=== PATIENT | male | born 1985 | race Hispanic/Latino ===

== ENCOUNTER 2017-06-10 18:34 | Inpatient (IN) | payer MEDICAID, OTHER ==
--- NOTE | 2017-06-10 19:00 | C.PDOC ---
History Of Present Illness 31 year old male presents to the ED requesting heroin detox. Patient states his last use was today at 17:00. Patient denies any SI/HI, hallucinations, or other physical complaints at this time. Time Seen by Provider: 06/10/17 18:59 Chief Complaint (Nursing): Substance Abuse History Per: Patient History/Exam Limitations: no limitations Onset/Duration Of Symptoms: Hrs Current Symptoms Are (Timing): Gone Suicide/Self Injury Attempted (Context): None Modifying Factor(s): Other (Heroin) Severity: None Associated Symptoms: denies: Depression, Suicidal Thoughts, Suicidal Plan Involuntary Hold By: None Recent travel outside of the [place]: No Additional History Per: Patient Past Medical History Reviewed: Historical Data, Nursing Documentation, Vital Signs - Medical History PMH: No Chronic Diseases Surgical History: No Surg Hx Family History: States: Unknown Family Hx - Social History Hx Alcohol Use: No Hx Substance Use: Yes - Immunization History Hx Tetanus Toxoid Vaccination: No Hx Influenza Vaccination: No Hx Pneumococcal Vaccination: No Review Of Systems Constitutional: Negative for: Fever, Chills Cardiovascular: Negative for: Chest Pain Respiratory: Negative for: Cough, Shortness of Breath Gastrointestinal: Negative for: Nausea, Vomiting, Abdominal Pain Skin: Negative for: Rash Neurological: Negative for: Weakness, Numbness Psych: Negative for: Suicidal ideation Physical Exam - Physical Exam Appears: Non-toxic, No Acute Distress Skin: Warm, Dry Head: Normacephalic Eye(s): bilateral: Normal Inspection Nose: No Discharge Oral Mucosa: Moist Neck: Trachea Midline, Supple Chest: Symmetrical Cardiovascular: Rhythm Regular Respiratory: No Rales, No Rhonchi, No Wheezing Gastrointestinal/Abdominal: Soft, No Tenderness, No Distention, No Rebound Male Genital: Normal Inspection Extremity: Normal ROM, No Pedal Edema, No Calf Tenderness, No Swelling Extremity: Bilateral: Atraumatic, Normal Color And Temperature Pulses: Left Dorsalis Pedis: Normal, Right Dorsalis Pedis: Normal Neurological/Psych: Oriented x3, Normal Speech, Normal Cognition Gait: Steady ED Course And Treatment - Laboratory Results Result Diagrams: 06/10/17 19:31 06/10/17 19:31 Disposition Discussed With : Lionel Oliver Comment: accepted the pt on his service and took over the care at 8:38 PM Doctor Will See Patient In The: Hospital Counseled Patient/Family Regarding: Studies Performed, Diagnosis - Disposition Disposition: HOSPITALIZED Disposition Time: 19:00 Condition: FAIR Forms: [facility] (Tanzanian) - POA Present On Arrival: None - Clinical Impression Clinical Impression: Drug abuse, Drug dependence - Scribe Statement The provider has reviewed the documentation as recorded by the Scribe Peter Mittal All medical record entries made by the Scribe were at my direction and personally dictated by me. I have reviewed the chart and agree that the record accurately reflects my personal performance of the history, physical exam, medical decision making, and the department course for this patient. I have also personally directed, reviewed, and agree with the discharge instructions and disposition. Decision To Admit - Pt Status Changed To: Hospital Disposition Of: Inpatient - Admit Certification Admit to Inpatient:: After my assessment, the patient will require hospitalization for at least two midnights. This is because of the severity of symptoms shown, intensity of services needed, and/or the medical risk in this patient being treated as an outpatient. - InPatient: Physician Admission Certification: I certify that this patient requires 2 or more midnights of care for the following reason:: After my assessment, the patient will require hospitalization for at least two midnights. This is because of the severity of symptoms shown, intensity of services needed, and/or the medical risk in this patient being treated as an outpatient. - . Bed Request Type: Detox Admitting Physician: Lionel Oliver Patient Diagnosis: Drug abuse, Drug dependence
[2017-06-10 19:34] LABS: BASO # 0.1 K/uL (0.0-0.2); BASO % 0.6 % (0.0-2.0); EOS # 0.1 K/uL (0.0-0.7); EOS % 0.7 % (0.0-4.0); HEMATOCRIT 37.2 % (35.0-51.0); LYMPH # 2.4 K/uL (1.0-4.3); MEAN CELL VOLUME 89.2 fL (80.0-94.0); MEAN CORPUSCULAR HEMOGLOBIN 30.6 pg (27.0-31.0); MEAN CORPUSCULAR HGB CONC 34.3 g/dL (33.0-37.0); MONO # 1.6 K/uL (0.0-0.8); MONO % 11.4 % (0.0-10.0); RED CELL DISTRIBUTION WIDTH 12.8 % (11.5-14.5); WHITE BLOOD COUNT 14.1 K/uL (4.8-10.8)
[2017-06-10 19:46] LABS: ALB/GLOB RATIO 1.3 (1.0-2.1); ALCOHOL SERUM < 10 mg/dl (0-10); ALKALINE PHOSPHATASE 82 U/L (38-126); ALT/SGPT 36 U/L (21-72); AST/SGOT 17 U/L (17-59); BILIRUBIN,TOTAL 0.5 mg/dL (0.2-1.3); BLOOD UREA NITROGEN 17 mg/dL (9-20); CALCIUM 8.9 mg/dl (8.6-10.4); CARBON DIOXIDE 29 mmol/L (22-30); CHLORIDE 102 mmol/L (98-107); GFR AFRICAN-AMERICAN > 60; GLUCOSE,RANDOM 100 mg/dL (75-110); SODIUM 139 mmol/L (132-148); TOTAL PROTEIN 7.4 g/dL (6.3-8.3)
[2017-06-10 19:49] LABS: RBC URINE 14 /hpf (0-3); URINE BACTERIA RARE (<OCC); URINE BILIRUBIN NEGATIVE (NEGATIVE); URINE BLOOD 1+ (NEGATIVE); URINE COLOR Yellow (YELLOW); URINE GLUCOSE (UA) NORMAL (Normal); URINE KETONE NEGATIVE (NEGATIVE); URINE LEUKOCYTE ESTERASE NEG Leu/uL (Negative); URINE PROTEIN NEGATIVE (NEGATIVE); WBC URINE 1 /hpf (0-5)
[2017-06-10] MEDS: traZODone 25 mg Tab PO PRN (22:28)
--- NOTE | 2017-06-10 22:31 | PCM.BM ---
<Cynthia Amador - Last Filed: 06/10/17 22:29> Treatment Plan Problems - Problems identified on initial assessmt Potential for Opiate Withdrawal Date Initiated: 06/10/17 Time Initiated: 22:30 Assessment reference: NA Treatment assets and liabiliti Patient Assests: adapts well, cooperative, self-reliant, ADL independent, negotiates basic needs Patient Liabilities: substance abuse - Milieu Protocol Maintain good personal hygiene: daily Encourage regular showers, daily Remind patient to perform daily oral care, daily Assist patient to perform ADL's Conduct patient checks and document Observation sheet: Q15 minutes Maintain personal safety: every shift Educate patient to report safety concerns to staff, every shift Monitor environment for contraband/sharps Medication safety: Monitor for expected outcome, potential side effects: every shift, Assess barriers to learning: every shift, Assess readiness for medication education: every shift <Stefany Galindo - Last Filed: 06/11/17 11:52> - Diagnosis (1) Opioid use disorder, severe, dependence Status: Acute Interventions: 06/11/17 11:53 * Assess 7x/week regarding severity of withdrawal * Educate regarding risks, benefits, side effects and alternatives of medications * Use Motivational Interviewing for abstinence * Use CBT for relapse prevention * Medication management for withdrawal symptoms * Encourage medication assisted treatment * <Saba Merchant - Last Filed: 06/12/17 11:31> Family Contact Family involvement: Famliy/SO not involved Family contact: Patient declines to allow family contact at present - Goals for Treatment Patient goals for treatment: Complete detox and consider Suboxone maintenance. Discharge/Continuing Care - Education Needs Education Needs: Patient Medication, Patient Diagnosis/Disease Process, Patient Coping Skills, Patient Anger Management skills, Patient Placement options, Patient Community resources - Discharge Discharge Criteria: Normal sleep pattern, No longer exhibiting s/s of withdrawal , Reduction of target symptoms Discharge to:: Home, With Family - Treatment Team Participation Patient/Family/SO Statement: 06/12/17 11:31 "I'll consider Suboxone. There's a place by my house." Discussed with Family/SO: No Was Patient/Family/SO present at Treatment Team Meeting: Yes
[2017-06-11] MEDS ORDERED: Aluminum Hydroxide/Magnesium Hydroxide Susp (30 mL) PO PRN (10:13)
--- NOTE | 2017-06-11 11:55 | PCM.PSYCH ---
Initial Psychiatric Evaluation - Initial Psychiatric Evaluation Type of Admission: Voluntary Legal Status: Capacity Chief Complaint (in patient's own words): "Heroin" History of Present Illness and Precipitating Events: Patient is seen, chart reviewed and case discussed This is a 31-year-old white male, single with no child, unemployed, lives with his family. Patient uses 10-25 bags of IV heroin for about a year. However, he started 7 years ago and had and 9 months sobriety at [place]. He had used painkillers in the beginning but not anymore. He admits to using cocaine "rarely" and smokes 1 pack per day cigarettes. He denies all other drug use and alcohol. His been to detox 4 times and rehabilitation twice at [place]. He reports suffering from anxiety but currently on no medications. Past psych history: No admissions or suicide attempts but he was prescribed low- dose Seroquel and Xanax in the past for anxiety. Medical history: Denies Family psych history: Denies Current Medications: Active Medications Generic Name Dose Route Start Last Admin Trade Name Freq PRN Reason Stop Dose Admin Al Hydrox/Mg Hydrox/Simethicone 30 ml 06/11/17 10:13 Maalox 30 Ml PO TID PRN Indigestion / Heartburn Clonidine HCl 0.1 mg 06/11/17 10:13 Catapres PO Q8 PRN COWS Score More or Equal to 5 Hydroxyzine HCl 50 mg 06/11/17 10:17 Atarax PO Q6H PRN Anxiety Ibuprofen 600 mg 06/11/17 10:16 Motrin Tab PO Q6H PRN Pain, moderate (4-7) Loperamide HCl 2 mg 06/11/17 10:13 Imodium PO Q8 PRN Diarrhea Nicotine 1 patch 06/11/17 10:15 06/11/17 10:40 Nicoderm Cq TD 1 patch DAILY FRANCISCO J Administration Ondansetron HCl 4 mg 06/11/17 10:13 Zofran Tab PO Q8 PRN Nausea/Vomiting Trazodone HCl 50 mg 06/10/17 22:18 06/10/17 22:28 Desyrel PO 50 mg HS PRN Administration Insomnia Past Psychiatric History - Past Psychiatric History Previous Treatment History: None Pertinent Medical Hx (Current Medical&Sleep Prob, Allergies): Allergies Allergy/AdvReac Type Severity Reaction Status Date / Time No Known Allergies Allergy Unverified 06/10/17 18:41 No Known Home Med 06/10/17 Review of Systems - Neurological Neurological: UNREMARKABLE - Psychiatric Psychiatric: Abnormal Sleep Pattern, Anxiety, Difficulty Concentrating, Irritability. absent: Hallucinations, Homicidal Ideation, Paranoia, Suicidal Ideation Mental Status Examination - Personal Presentation Personal Presentation: Looks stated age - Affect Affect: Constricted - Motor Activity Motor Activity: Calm - Reliability in Providing Information Reliability in Providing Information: Good - Speech Speech: Organized - Mood Mood: Anxious - Formal Thought Process Formal Thought Process: No Impairment - Cognitive Functions Orientation: Person, Place, Situation, Time Sensorium: Alert Attention/Concentration: Attentive Estimate of Intelligence: Average Judgement: Intact, as evidence by: Insight regarding need for hospitalization Memory: Recent intact, as evidence by: Ability to recall events of the day, Remote intact, as evidenced by: Abilit to recall sig. life events - Risk Risk: Withdrawal, Diminished functioning - Strength & Assets Inventory Strength & Assets Inventory: Cooperative - Limitations Limitations: Other DSM 5 DX - DSM 5 DSM 5 Diagnosis: Opioid withdrawal Opioid use d/o - severe Tobacco use d/o - severe Anxiety d/o- unspecified - Recommended/Plan of Treatment Treatment Recommendations and Plan of Treatment: Methadone detox As needed medications Attend groups and activities Supportive therapy and psychoeducation SC for abstinence CBT for relapse prevention Encourage MAT Refer to rehab or IOP, and self-help groups Smoking cessation with SC Nicotine patch 34 min Projected ELOS: 5 days Prognosis: good with treatment Discharge Plan and Discharge Criteria: No wdw sxs Refer to rehab and MAT - Smoking Cessation Smoking Cessation Initiated: Yes
[2017-06-11] MEDS: traZODone 25 mg Tab PO PRN (21:01)
--- NOTE | 2017-06-12 14:17 | PCM.PYCHPN ---
Psychiatric Progress Note - Psychiatric Progress Note Patient seen today, length of contact: 18 min Patient Chief Complaint: "I was withdrawing last night" Problems Identified/Issues Discussed: The pt is seen, chart reviewed, case discussed with staff. Support given, CBT and VT used briefly No new symptoms reported, improving slowly and needs more time He is too anxious about withdrawing, one dose prn methadone added No SEs from medications, risks discussed. After care discussed Medication Change: Yes (detox changes daily) Medical Record Reviewed: Yes Mental Status Examination - Cognitive Function Orientation: Person, Place, Situation, Time Memory: Intact Attention: Poor Concentration: Poor Association: WNL Fund of Knowledge: WNL - Mood Mood: Anxious - Affect Affect: Constricted - Speech Speech: Appropriate - Formal Thought Process Formal Thought Process: No Impairment - Suicidal Ideation Suicidal Ideation: No - Homicidal Ideation Homicidal Ideation: No Goal/Treatment Plan - Goal/Treatment Plan Need for Continued Stay: Discharge may exacerbated symptoms, Severe functional impairment Progress Toward Problem(s) and Goals/Treatment Plan: Methadone detox adjusted Seroquel added and increased As needed medications Attend groups and activities Supportive therapy and psychoeducation [place] for abstinence CBT for relapse prevention Encourage MAT Refer to rehab or IOP, and self-help groups Smoking cessation with VT Nicotine patch Estimated Date of D/C: 06/15/17
[2017-06-12] MEDS ORDERED: Benzocaine 10% Oral Anesthetic (12 ml) MM PRN (18:21)
[2017-06-12] MEDS: Benzocaine 7.5% 9.4 G TUBE MM PRN (18:54)
[2017-06-12] MEDS: traZODone 25 mg Tab PO PRN (21:41)
--- NOTE | 2017-06-13 10:17 | PCM.PYCHPN ---
Psychiatric Progress Note - Psychiatric Progress Note Patient seen today, length of contact: 15 min Patient Chief Complaint: "I'm so-so" Problems Identified/Issues Discussed: This patient was seen, chart reviewed, and case discussed with staff. Patient reports improving sleep with medication use. He states he felt anxious last night but is unsure of why. He reports being anxious today regarding transportation home and with after care. He denies any feelings of depression or anxiety. He denies any auditory or visual hallucinations or any feelings of paranoia. He denies any suicidal or homicidal ideations. He continues to be social and freely leaves his room. Patient is compliant with medications and denies any side effects. Symptoms are improving but need more time to stabilize. After care discussed, he is considering outpatient treatment but prefers to "go home and go back to work." Support and psychoeducation given. Medication Change: Yes (Methadone taper ) Medical Record Reviewed: Yes Mental Status Examination - Cognitive Function Orientation: Person, Place, Situation, Time Memory: Intact Attention: WNL Concentration: WNL Association: WNL Fund of Knowledge: WNL - Mood Mood: Anxious - Affect Affect: Constricted - Speech Speech: Appropriate - Formal Thought Process Formal Thought Process: No Impairment - Suicidal Ideation Suicidal Ideation: No - Homicidal Ideation Homicidal Ideation: No Goal/Treatment Plan - Goal/Treatment Plan Need for Continued Stay: Discharge may exacerbated symptoms, Severe functional impairment Progress Toward Problem(s) and Goals/Treatment Plan: Methadone detox As needed medications Attend groups and activities Supportive therapy and psychoeducation [place] for abstinence CBT for relapse prevention Encourage MAT Refer to rehab or IOP, and self-help groups Smoking cessation with [place] Nicotine patch Estimated Date of D/C: 06/15/17
[2017-06-13 11:14] LABS: BASO % 0.3 % (0.0-2.0); EOS # 0.1 K/uL (0.0-0.7); EOS % 1.2 % (0.0-4.0); HEMATOCRIT 36.4 % (35.0-51.0); LYMPH # 2.7 K/uL (1.0-4.3); LYMPH % 34.7 % (20.0-40.0); MEAN CELL VOLUME 89.5 fL (80.0-94.0); MEAN CORPUSCULAR HGB CONC 34.7 g/dL (33.0-37.0); MEAN PLATELET VOLUME 8.2 fL (7.2-11.7); MONO # 0.4 K/uL (0.0-0.8); RED CELL DISTRIBUTION WIDTH 12.8 % (11.5-14.5); WHITE BLOOD COUNT 7.9 K/uL (4.8-10.8)
[2017-06-13] MEDS: Benzocaine 7.5% 9.4 G TUBE MM PRN (13:57)
[2017-06-13] MEDS: traZODone 25 mg Tab PO PRN (21:28)
--- NOTE | 2017-06-14 14:15 | PCM.PYCHPN ---
Psychiatric Progress Note - Psychiatric Progress Note Patient seen today, length of contact: 15 min Patient Chief Complaint: "I am better" Problems Identified/Issues Discussed: The pt is seen, chart reviewed, case discussed with staff. Support given, CBT and IN used briefly No new symptoms reported, improving slowly and needs more time No SEs from medications, risks discussed. After care discussed and he is still only interested in "meetings, maybe IOP" Medication Change: Yes (Methadone taper ) Medical Record Reviewed: Yes Mental Status Examination - Cognitive Function Orientation: Person, Place, Situation, Time Memory: Intact Attention: WNL Concentration: WNL Association: WNL Fund of Knowledge: WNL - Mood Mood: Anxious - Affect Affect: Constricted - Speech Speech: Appropriate - Formal Thought Process Formal Thought Process: No Impairment - Suicidal Ideation Suicidal Ideation: No - Homicidal Ideation Homicidal Ideation: No Goal/Treatment Plan - Goal/Treatment Plan Need for Continued Stay: Discharge may exacerbated symptoms, Severe functional impairment Progress Toward Problem(s) and Goals/Treatment Plan: Methadone detox adjusted Seroquel added and increased As needed medications Attend groups and activities Supportive therapy and psychoeducation [place] for abstinence CBT for relapse prevention Encourage MAT Refer to rehab or IOP, and self-help groups Smoking cessation with [place] Nicotine patch Estimated Date of D/C: 06/15/17
[2017-06-14] MEDS: traZODone 25 mg Tab PO PRN (21:24)
--- NOTE | 2017-06-15 08:45 | PCM.PYCHDC ---
Mental Status Examination - Mental Status Examination Orientation: Person, Place, Situation, Time Memory: Intact Mood: Anxious Affect: Broad Speech: Appropriate Attention: WNL Concentration: WNL Association: WNL Fund of Knowledge: WNL Formal Thought Process: No Impairment Suicidal Ideation: No Current Homicidal Ideation?: No Discharge Summary - Discharge Note Reason for Hospitalization: Heroin detox Consultations:: List each consultation separately and include: 1. Reason for request. 2. Findings. 3. Follow-up Summary of Hospital Course include:: 1. Description of specific treatment plan utilized for patients during their course of treatmen. 2. Summarize the time- course for resolution of acute symptoms and/or regressed behaviors. 3. Describe issues identified and worked on during hospitalization. 4. Describe medication utilized. 5. Describe medical problems identified and treated. 6. Reassessment of suicide risk Summary of Hospital Course: Patient is seen, chart reviewed and case discussed On admission: This is a 31-year-old white male, single with no child, unemployed, lives with his family. Patient uses 10-25 bags of IV heroin for about a year. However, he started 7 years ago and had and 9 months sobriety at [place]. He had used painkillers in the beginning but not anymore. He admits to using cocaine "rarely" and smokes 1 pack per day cigarettes. He denies all other drug use and alcohol. His been to detox 4 times and rehabilitation twice at [place]. He reports suffering from anxiety but currently on no medications. Past psych history: No admissions or suicide attempts but he was prescribed low- dose Seroquel and Xanax in the past for anxiety. Medical history: Denies Family psych history: Denies Hospital course: The pt was admitted and started on treatment with psychotherapy, support, psychoeducation and medications. AR and CBT used. The pt attended groups and activities, as well as milieu therapy. All the risks and benefits of medications are discussed and the patient understood and agreed. The pt improved with the treatments provided. He tried to AMA on the first day bc he had so many wdw sxs, but agreed to stay with added meds, incl. seroquel After care discussed with the patient. He minimized his risk of relapse but later on agreed to consider suboxone or vivitrol, and will seek help at [facility] , but since he agreed on the last day no appt was made. He said "they know me, I 'll just go." Will also attend NA/AA - Final Diagnosis (DSM 5) Condition upon Discharge: IMPROVED DSM 5: Opioid withdrawal Opioid use d/o - severe Tobacco use d/o - severe Anxiety d/o- unspecified Disposition: HOME/ ROUTINE Follow-up Treatment Plan: Continue below medications after discharge. Follow after care plan as discussed. Use relapse prevention skills Return to ER or call 911 if suicidal, homicidal or symptoms relapse. Stay away from stress, alcohol and drugs. See primary doctor regularly and get labs. Prescriptions/Medication Reconciliation: Gabapentin [Neurontin] 300 mg PO TID #90 cap QUEtiapine [Seroquel] 100 mg PO HS #30 tab - Smoking Cessation Smoking Cessation Medication prescribed: No - Antipsychotic Medications Pt discharged on 2 or more routine antipsychotic medications: No
[2017-06-15 09:13] VITALS: BP 109/73; PULSE 86; RESP 19; TEMP 98; O2SAT 98
== END 2017-06-15 10:20 | disposition home or self-care (01) | DRG 745 ==
LOC: C.ER 18:34 → C.7D 20:38
PROC: HZ52ZZZ Individual Psychotherapy for Substance Abuse Treatment, Cognitive-Behavioral (ICD-10-PCS; principal; 2017-06-10)
PROC: HZ59ZZZ Individual Psychotherapy for Substance Abuse Treatment, Supportive (ICD-10-PCS; 2017-06-10)
PROC: HZ56ZZZ Individual Psychotherapy for Substance Abuse Treatment, Psychoeducation (ICD-10-PCS; 2017-06-10)
PROC: HZ2ZZZZ Detoxification Services for Substance Abuse Treatment (ICD-10-PCS; 2017-06-10)
DX: F11.23 Opioid dependence with withdrawal (principal); F17.210 Nicotine dependence, cigarettes, uncomplicated; F41.9 Anxiety disorder, unspecified